=== PATIENT | male | born 1950 | race Caucasian/White ===

== ENCOUNTER 2025-01-09 22:04 | Inpatient (IN) | payer MEDICARE, OTHER ==
[~2025-01-09] VITALS: Ht 182.9 cm; Wt 91.3 kg
[2025-01-09] MEDS: IV NS 0.9% 1,000 ML BAG IV ONE (23:20)
[2025-01-09 23:31] LABS: PLATELET COUNT (AUTO) 409 K/uL (150-450); RED BLOOD CELL COUNT(AUTO) 4.47 MIL/uL (4.5-6.0); RED CELL DISTRIBUTION WIDTH 13.5 % (11.5-15.0); WHITE BLOOD COUNT (AUTO) 11.4 K/uL (4.3-11.0)
[2025-01-09 23:37] LABS: CALCIUM, SERUM 9.1 mg/dL (8.5-10.1); CREATININE 0.9 mg/dL (0.6-1.3); SODIUM SERUM 136 mmol/L (136-145); UREA NITROGEN, BLOOD 11 mg/dL (7-18)
[2025-01-09 23:44] LABS: ASPARTATE AMINOTRANSFERASE 24 U/L (15-37); INR 1.06 (0.91-1.10); TOTAL PROTEIN, SERUM 6.7 g/dL (6.4-8.2)
[2025-01-09 23:51] LABS: LACTIC ACID 2.5 mmol/L (0.4-2.0)
[2025-01-10] MEDS ORDERED: PIPERACI/TAZO 3.375GM/D5W 50ML PB IV ONE (02:51)
[2025-01-10] MEDS: IV NS 0.9% 1,000 ML IV ONE (02:58)
[2025-01-10] MEDS: PIPERACILLIN /TAZOBACTAM 3.375 G in IV D5W 50 ML IV ONE (02:58)
[2025-01-10 03:00] VITALS: O2SAT 97
[2025-01-10] MEDS ORDERED: MAGNESIUM HYDROXIDE 30 ML UDC PO PRN (03:00)
[2025-01-10] MEDS ORDERED: ONDANSETRON HCL/PF 4 MG/2 ML VIAL IVP PRN (03:00)
[2025-01-10] MEDS ORDERED: MAG HYDROX/AL HYDROX/SIMETH 30 ML UDC PO PRN (03:00)
[2025-01-10] MEDS ORDERED: DOSING PER PHARMACY-VANCOMYCIN IV XX PRN (03:00)
[2025-01-10] MEDS ORDERED: Z GUARD REMEDY 4 OZ OINT TP PRN (03:00)
[2025-01-10 03:30] LABS: APPEARANCE,URINE CLEAR (CLEAR); BLOOD, URINE NEGATIVE Ery/uL (NEGATIVE); LEUKOCYTE ESTERASE ,URINE NEGATIVE (NEGATIVE); NITRITE, URINE NEGATIVE (NEGATIVE); UGLUCOSE NEGATIVE (NEGATIVE)
[2025-01-10] MEDS ORDERED: ENOXAPARIN SODIUM 40 MG/0.4 ML DISP.SYRIN SQ ONE (03:45)
[2025-01-10] MEDS: ENOXAPARIN SODIUM 40 MG/0.4 ML DISP.SYRIN SQ SCH (04:01)
[2025-01-10 04:02] VITALS: BP 118/78; TEMP 97.5; O2SAT 99
[2025-01-10] MEDS ORDERED: VANCOMYCIN 1 GM /D5W 250 ML PB IV ONE (04:44)
[2025-01-10] MEDS ORDERED: VANCOMYCIN 500 MG VIAL ONE (05:08)
[2025-01-10] MEDS: VANCOMYCIN HCL IV ONE (05:11)
[2025-01-10] MEDS: NS 0.9% IV ONE (05:11)
[2025-01-10] MEDS: IV NS 0.9% 1,000 ML IV SCH (05:16)
[2025-01-10] MEDS: ACETAMINOPHEN 325 MG TABLET PO PRN (06:13)
[2025-01-10 07:00] VITALS: BP 112/81; TEMP 98.2; O2SAT 96
[2025-01-10 07:52] LABS: PLATELET COUNT (AUTO) 378 K/uL (150-450); RED BLOOD CELL COUNT(AUTO) 4.35 MIL/uL (4.5-6.0); RED CELL DISTRIBUTION WIDTH 13.9 % (11.5-15.0); WHITE BLOOD COUNT (AUTO) 8.6 K/uL (4.3-11.0)
[2025-01-10 08:21] LABS: CALCIUM, SERUM 8.4 mg/dL (8.5-10.1); CREATININE 0.9 mg/dL (0.6-1.3); PHOSPHORUS 3.0 mg/dL (2.5-4.9); SODIUM SERUM 139.0 mmol/L (136-145); UREA NITROGEN, BLOOD 10.0 mg/dL (7-18)
[2025-01-10] MEDS: PIPERACILLIN /TAZOBACTAM 3.375 G in IV D5W 50 ML IV SCH (08:29)
[2025-01-10] MEDS: THERAHONEY GEL 1.5 OZ TUBE TP SCH (09:19)
[2025-01-10] MEDS ORDERED: DIPH50LI PO (11:45)
[2025-01-10] MEDS ORDERED: ATOR40TA PO (11:45)
[2025-01-10] MEDS ORDERED: DICL100G34 TP (11:45)
[2025-01-10] MEDS ORDERED: [UNRECOGNIZED DRUG - OTHER] PO (11:45)
[2025-01-10] MEDS ORDERED: [UNRECOGNIZED DRUG - CODE] PO (11:45)
[2025-01-10] MEDS ORDERED: ASPI-1420 PO (11:45)
[2025-01-10] MEDS ORDERED: KETO15CR2 TP (11:45)
[2025-01-10] MEDS ORDERED: MELA3TAB41 PO (11:45)
[2025-01-10] MEDS ORDERED: LISI10TA30 PO (11:45)
[2025-01-10] MEDS ORDERED: GABA-532 PO ×2 (11:45)
[2025-01-10] MEDS ORDERED: AMIT10TA6 PO (11:45)
[2025-01-10] MEDS ORDERED: OMEP20CA15 PO (11:45)
[2025-01-10] MEDS ORDERED: CARB1TAB24 PO (11:45)
[2025-01-10 16:00] VITALS: BP 122/69; TEMP 98.6; O2SAT 96
[2025-01-10] MEDS: CARBIDOPA/LEVODOPA 25/250 MG 1 UDTAB PO SCH (16:33)
[2025-01-10] MEDS: KETOCONAZOLE 2% CREAM 15 GM TUBE TP SCH (16:37)
[2025-01-10] MEDS: VANCOMYCIN 1 GM in IV D5W 250ml IV SCH (17:03)
[2025-01-10] MEDS: GABAPENTIN 100 MG CAPSULE PO SCH (17:03)
[2025-01-10] MEDS: AMITRIPTYLINE HCL 10 MG TABLET PO SCH (17:04)
[2025-01-10] MEDS: DICLOFENAC TOPICAL 100 GM TUBE TP SCH (17:05)
[2025-01-10 20:00] VITALS: BP 100/51; TEMP 98.8; O2SAT 95
[2025-01-10] MEDS: CEFEPIME 1 GM in IV D5W 50 ML IV SCH (20:18)
[2025-01-10] MEDS ORDERED: MELATONIN 12 MG PO SCH (22:00)
[2025-01-11 07:07] LABS: PLATELET COUNT (AUTO) 287 K/uL (150-450); RED BLOOD CELL COUNT(AUTO) 4.31 MIL/uL (4.5-6.0); RED CELL DISTRIBUTION WIDTH 14.1 % (11.5-15.0); WHITE BLOOD COUNT (AUTO) 6.9 K/uL (4.3-11.0)
[2025-01-11 07:57] LABS: CALCIUM, SERUM 8.6 mg/dL (8.5-10.1); CREATININE 0.9 mg/dL (0.6-1.3); SODIUM SERUM 139.0 mmol/L (136-145); UREA NITROGEN, BLOOD 8.0 mg/dL (7-18)
[2025-01-11] MEDS: GABAPENTIN 100 MG CAPSULE PO SCH (08:07)
[2025-01-11] MEDS: ATORVASTATIN 40 MG TABLET PO SCH (08:07)
[2025-01-11] MEDS: ASPIRIN EC 81 MG TABLET.DR PO SCH (08:07)
[2025-01-11] MEDS: LISINOPRIL (10MG) 10 MG TABLET PO SCH (08:08)
[2025-01-11] MEDS: PANTOPRAZOLE 40 MG TABLET.DR PO SCH (08:09)
[2025-01-11 08:28] VITALS: BP 118/63; TEMP 97.5; O2SAT 97
[2025-01-11 16:00] VITALS: BP 104/64; TEMP 97.8; O2SAT 96
[2025-01-11 20:00] VITALS: BP 130/75; TEMP 97.9; O2SAT 95
[2025-01-12 07:30] VITALS: BP 131/71; TEMP 98.1; O2SAT 96
[2025-01-12 09:20] LABS: PLATELET COUNT (AUTO) 352 K/uL (150-450); RED BLOOD CELL COUNT(AUTO) 4.43 MIL/uL (4.5-6.0); RED CELL DISTRIBUTION WIDTH 13.7 % (11.5-15.0); WHITE BLOOD COUNT (AUTO) 5.9 K/uL (4.3-11.0)
[2025-01-12 09:31] LABS: CALCIUM, SERUM 8.4 mg/dL (8.5-10.1); CREATININE 0.8 mg/dL (0.6-1.3); SODIUM SERUM 138.0 mmol/L (136-145); UREA NITROGEN, BLOOD 9.0 mg/dL (7-18)
[2025-01-12 20:00] VITALS: BP 101/56; TEMP 98.1; O2SAT 95
[2025-01-13 07:30] VITALS: BP 130/89; TEMP 98.1; O2SAT 96
[2025-01-13 07:49] LABS: CALCIUM, SERUM 8.7 mg/dL (8.5-10.1); CREATININE 0.8 mg/dL (0.6-1.3); SODIUM SERUM 139.0 mmol/L (136-145); UREA NITROGEN, BLOOD 9.0 mg/dL (7-18)
[2025-01-13 08:02] LABS: PLATELET COUNT (AUTO) 374 K/uL (150-450); RED BLOOD CELL COUNT(AUTO) 4.48 MIL/uL (4.5-6.0); RED CELL DISTRIBUTION WIDTH 13.7 % (11.5-15.0); WHITE BLOOD COUNT (AUTO) 6.7 K/uL (4.3-11.0)
[2025-01-13] MEDS ORDERED: IV NS 0.9% 1,000 ML IV PRN (08:06)
[2025-01-13 08:32] VITALS: BP 130/89
[2025-01-13] MEDS ORDERED: DOXY100C2 PO (11:31)
== END 2025-01-13 15:40 | DRG 602 ==
LOC: ER 22:07 → TELE 01-10 03:00 → MED 01-10 06:26
PROVIDERS: ADMIT Nurse Practitioner Family; ATTEND Nurse Practitioner Family
DX: L03.116 Cellulitis of left lower limb (principal); L89.153 Pressure ulcer of sacral region, stage 3; L89.323 Pressure ulcer of left buttock, stage 3; L89.313 Pressure ulcer of right buttock, stage 3; L89.893 Pressure ulcer of other site, stage 3; L89.623 Pressure ulcer of left heel, stage 3; E44.1 Mild protein-calorie malnutrition; E87.20 Acidosis, unspecified; I87.312 Chronic venous hypertension (idiopathic) with ulcer of left lower extremity; L97.828 Non-pressure chronic ulcer of other part of left lower leg with other specified severity; L03.115 Cellulitis of right lower limb; R62.7 Adult failure to thrive; R53.1 Weakness; I87.2 Venous insufficiency (chronic) (peripheral); E88.09 Other disorders of plasma-protein metabolism, not elsewhere classified; E66.9 Obesity, unspecified; G20.A1 Parkinson's disease without dyskinesia, without mention of fluctuations; I10 Essential (primary) hypertension; K21.9 Gastro-esophageal reflux disease without esophagitis; R32 Unspecified urinary incontinence; L22 Diaper dermatitis; Z20.822 Contact with and (suspected) exposure to COVID-19; R26.89 Other abnormalities of gait and mobility; R73.9 Hyperglycemia, unspecified; L98.8 Other specified disorders of the skin and subcutaneous tissue; S80.212A Abrasion, left knee, initial encounter; X58.XXXA Exposure to other specified factors, initial encounter; Y93.9 Activity, unspecified; Z68.27 Body mass index [BMI] 27.0-27.9, adult; Y92.009 Unspecified place in unspecified non-institutional (private) residence as the place of occurrence of the external cause; E89.0 Postprocedural hypothyroidism
CPT/HCPCS: 36415; 70450-TC; 71045-TC; 73590-TC; 73630-TC; 80048-TC; 80076-TC; 80202-TC; 83605-TC; 83735-TC; 84100-TC; 85025-TC; 85730-TC; 87040-TC; 87086-TC; 93970-TC; 97110-TC; 97116-TC; 97530-TC; 97535-TC; A4223; A6253; G0378; J0692; J1650; J2543; J3373; J7030; J7042; J7050; J7060; Q0163

== ENCOUNTER 2025-02-08 17:56 | Inpatient (IN) | payer MEDICARE ==
[~2025-02-08] VITALS: Ht 182.9 cm; Wt 83.5 kg
[~2025-02-08 17:56] MED LIST: AMIT10TA6 PO; ASPI-1420 PO; ATOR40TA PO; CARB1TAB24 PO; DICL100G34 TP; DIPH50LI PO; DOXY100C2 PO; GABA-532 PO; KETO15CR2 TP; LISI10TA30 PO; MELA3TAB41 PO; OMEP20CA15 PO; [UNRECOGNIZED DRUG - CODE] PO; [UNRECOGNIZED DRUG - OTHER] PO
[2025-02-08] MEDS: VANCOMYCIN 1 GM in IV D5W 250 ML IV ONE (18:30)
[2025-02-08] MEDS ORDERED: ACETAMINOPHEN ES 500 MG TABLET ONE (18:38)
[2025-02-08 18:42] LABS: PLATELET COUNT (AUTO) 377 K/uL (150-450); RED BLOOD CELL COUNT(AUTO) 4.47 MIL/uL (4.5-6.0); RED CELL DISTRIBUTION WIDTH 13.7 % (11.5-15.0); WHITE BLOOD COUNT (AUTO) 13.4 K/uL (4.3-11.0)
[2025-02-08 18:50] LABS: CALCIUM, SERUM 9.2 mg/dL (8.5-10.1); CREATININE 1.1 mg/dL (0.6-1.3); SODIUM SERUM 137 mmol/L (136-145); UREA NITROGEN, BLOOD 13 mg/dL (7-18)
[2025-02-08] MEDS: IV NS 0.9% 1,000 ML BAG IV ONE (18:52)
[2025-02-08] MEDS: CEFEPIME 1 GM in IV D5W 50 ML IV ONE (18:52)
[2025-02-08 18:53] LABS: INR 1.09 (0.91-1.10)
[2025-02-08] MEDS: ACETAMINOPHEN ES 500 MG TABLET PO ONE (18:53)
[2025-02-08 18:55] LABS: ASPARTATE AMINOTRANSFERASE 23 U/L (15-37); TOTAL PROTEIN, SERUM 7.0 g/dL (6.4-8.2)
[2025-02-08 18:59] LABS: LACTIC ACID 4.9 mmol/L (0.4-2.0)
[2025-02-08] MEDS ORDERED: MAGNESIUM HYDROXIDE 30 ML UDC PO PRN (19:30)
[2025-02-08] MEDS ORDERED: ONDANSETRON HCL/PF 4 MG/2 ML VIAL IVP PRN (19:30)
[2025-02-08] MEDS ORDERED: MAG HYDROX/AL HYDROX/SIMETH 30 ML UDC PO PRN (19:30)
[2025-02-08] MEDS ORDERED: DOSING PER PHARMACY-VANCOMYCIN IV XX PRN (19:30)
[2025-02-08] MEDS ORDERED: Z GUARD REMEDY 4 OZ OINT TP PRN (19:30)
[2025-02-08] MEDS: IV NS 0.9% 500 ML BAG IV ONE (19:35)
[2025-02-08] MEDS: VANCOMYCIN 1 GM in IV D5W 250ml IV ONE (20:00)
[2025-02-08] MEDS ORDERED: MELATONIN 12 MG PO SCH (22:00)
[2025-02-09] MEDS: IV NS 0.9% 1,000 ML IV PRN (01:15)
[2025-02-09 04:01] VITALS: BP 109/72; TEMP 98.2; O2SAT 98
[2025-02-09 04:50] LABS: APPEARANCE,URINE CLEAR (CLEAR); BLOOD, URINE NEGATIVE Ery/uL (NEGATIVE); LEUKOCYTE ESTERASE ,URINE NEGATIVE (NEGATIVE); NITRITE, URINE NEGATIVE (NEGATIVE); UGLUCOSE NEGATIVE (NEGATIVE)
[2025-02-09 07:45] LABS: PLATELET COUNT (AUTO) 322 K/uL (150-450); RED BLOOD CELL COUNT(AUTO) 3.84 MIL/uL (4.5-6.0); RED CELL DISTRIBUTION WIDTH 13.4 % (11.5-15.0); WHITE BLOOD COUNT (AUTO) 8.0 K/uL (4.3-11.0)
[2025-02-09 07:47] LABS: ASPARTATE AMINOTRANSFERASE 20.0 U/L (15-37); CALCIUM, SERUM 8.6 mg/dL (8.5-10.1); CREATININE 0.7 mg/dL (0.6-1.3); PHOSPHORUS 3.1 mg/dL (2.5-4.9); SODIUM SERUM 140.0 mmol/L (136-145); TOTAL PROTEIN, SERUM 5.7 g/dL (6.4-8.2); UREA NITROGEN, BLOOD 10.0 mg/dL (7-18)
[2025-02-09 07:50] LABS: LACTIC ACID 1.1 mmol/L (0.4-2.0)
[2025-02-09 08:00] VITALS: BP 94/64; TEMP 98.1; O2SAT 94
[2025-02-09] MEDS: LISINOPRIL (10MG) 10 MG TABLET PO SCH (09:00)
[2025-02-09] MEDS: CARBIDOPA/LEVODOPA 25/250 MG 1 UDTAB PO SCH (09:15)
[2025-02-09] MEDS: ASPIRIN EC 81 MG TABLET.DR PO SCH (09:15)
[2025-02-09] MEDS: PANTOPRAZOLE 40 MG VIAL IV SCH (09:15)
[2025-02-09] MEDS: GABAPENTIN 100 MG CAPSULE PO SCH ×2 (09:15→18:39)
[2025-02-09] MEDS: THERAHONEY GEL 1.5 OZ TUBE TP SCH (09:16)
[2025-02-09] MEDS: VANCOMYCIN 750 MG in IV D5W 250 ML IV SCH (09:16)
[2025-02-09] MEDS: DAKINS QUARTER STRENGTH (0.125%) 480 ML BOTTLE TOP SCH (09:16)
[2025-02-09] MEDS: KETOCONAZOLE 2% CREAM 15 GM TUBE TP SCH (09:17)
[2025-02-09] MEDS: ENOXAPARIN SODIUM 40 MG/0.4 ML DISP.SYRIN SQ SCH (09:18)
[2025-02-09] MEDS: ATORVASTATIN 40 MG TABLET PO SCH (09:22)
[2025-02-09 12:00] VITALS: BP 98/62; TEMP 98.1; O2SAT 94
[2025-02-09 16:00] VITALS: BP 85/65; TEMP 98.8; O2SAT 94
[2025-02-09 16:48] VITALS: BP 103/61; TEMP 98.8; O2SAT 94
[2025-02-09] MEDS: IV NS 0.9% 500 ML IV ONE (16:55)
[2025-02-09] MEDS: AMITRIPTYLINE HCL 10 MG TABLET PO SCH (18:39)
[2025-02-09] MEDS: CEFEPIME 1 GM in IV D5W 50 ML IV SCH (18:52)
[2025-02-09 20:00] VITALS: BP 101/65; TEMP 98.7; O2SAT 96
[2025-02-10] MEDS: ACETAMINOPHEN 325 MG TABLET PO PRN (02:09)
[2025-02-10 04:00] VITALS: BP 105/65; TEMP 98.2; O2SAT 96
[2025-02-10 07:48] LABS: PLATELET COUNT (AUTO) 253 K/uL (150-450); RED BLOOD CELL COUNT(AUTO) 3.90 MIL/uL (4.5-6.0); RED CELL DISTRIBUTION WIDTH 14.2 % (11.5-15.0); WHITE BLOOD COUNT (AUTO) 5.5 K/uL (4.3-11.0)
[2025-02-10 07:58] LABS: CALCIUM, SERUM 8.8 mg/dL (8.5-10.1); CREATININE 0.9 mg/dL (0.6-1.3); PHOSPHORUS 3.5 mg/dL (2.5-4.9); SODIUM SERUM 142.0 mmol/L (136-145); UREA NITROGEN, BLOOD 9.0 mg/dL (7-18)
[2025-02-10 08:00] VITALS: BP 119/72; TEMP 97.7; O2SAT 98
[2025-02-10] MEDS: PANTOPRAZOLE 40 MG TABLET.DR PO SCH (08:48)
[2025-02-10] MEDS ORDERED: SULF1TAB48 PO (11:49)
[2025-02-10 16:00] VITALS: BP 94/65; TEMP 97.5; O2SAT 97
[2025-02-10 20:00] VITALS: BP 119/72; TEMP 97.3; O2SAT 97
[2025-02-11 04:00] VITALS: BP 130/81; TEMP 98.4; O2SAT 95
[2025-02-11 08:00] VITALS: BP 128/77; TEMP 98.9; O2SAT 96
[2025-02-11 08:00] LABS: CALCIUM, SERUM 8.9 mg/dL (8.5-10.1); CREATININE 0.8 mg/dL (0.6-1.3); SODIUM SERUM 141.0 mmol/L (136-145); UREA NITROGEN, BLOOD 7.0 mg/dL (7-18)
[2025-02-11] MEDS: FLU VACC 2025-26(6MOS UP) 0.5 ML SYRINGE IM ONE (12:43)
[2025-02-11 16:00] VITALS: BP 116/74; TEMP 98.5; O2SAT 95
[2025-02-11 20:00] VITALS: BP 98/56; TEMP 98.5; O2SAT 95
[2025-02-12 04:00] VITALS: BP 128/77; TEMP 99.1; O2SAT 95
[2025-02-12 08:00] VITALS: BP 131/85; TEMP 98.6; O2SAT 98
[2025-02-12 08:17] LABS: CALCIUM, SERUM 8.6 mg/dL (8.5-10.1); CREATININE 0.7 mg/dL (0.6-1.3); SODIUM SERUM 141.0 mmol/L (136-145); UREA NITROGEN, BLOOD 6.0 mg/dL (7-18)
[2025-02-12 16:00] VITALS: BP 109/74; TEMP 97.6; O2SAT 96
== END 2025-02-12 19:00 | DRG 871 ==
LOC: ER 18:24 → MEDSG1 21:16
PROVIDERS: ADMIT Nurse Practitioner Acute Care; ATTEND Internal Medicine
DX: A41.9 Sepsis, unspecified organism (principal); L89.153 Pressure ulcer of sacral region, stage 3; L89.623 Pressure ulcer of left heel, stage 3; L89.323 Pressure ulcer of left buttock, stage 3; L89.313 Pressure ulcer of right buttock, stage 3; L89.213 Pressure ulcer of right hip, stage 3; L89.893 Pressure ulcer of other site, stage 3; L03.115 Cellulitis of right lower limb; L03.116 Cellulitis of left lower limb; E87.20 Acidosis, unspecified; I87.311 Chronic venous hypertension (idiopathic) with ulcer of right lower extremity; L97.819 Non-pressure chronic ulcer of other part of right lower leg with unspecified severity; K21.9 Gastro-esophageal reflux disease without esophagitis; I10 Essential (primary) hypertension; L30.9 Dermatitis, unspecified; Z20.822 Contact with and (suspected) exposure to COVID-19; R53.1 Weakness; G20.A1 Parkinson's disease without dyskinesia, without mention of fluctuations; E78.5 Hyperlipidemia, unspecified; M19.90 Unspecified osteoarthritis, unspecified site; R26.89 Other abnormalities of gait and mobility; I87.2 Venous insufficiency (chronic) (peripheral); E89.0 Postprocedural hypothyroidism
CPT/HCPCS: 36415; 71045-TC; 80048-TC; 80053-TC; 80076-TC; 80202-TC; 83605-TC; 83735-TC; 83880; 84100-TC; 84484-TC; 85025-TC; 85730-TC; 87040-TC; 87081-TC; 87086-TC; 97110-TC; 97112-TC; 97530-TC; 97535-TC; A4223; A6213; A6253; A6403; G0378; J0692; J1650; J2470; J3373; J3374; J7030; J7040; J7060